=== PATIENT | female | born 1955 | race Caucasian/White ===

== ENCOUNTER 2021-01-29 02:50 | Inpatient (IN) | payer MEDICARE, BC ==
[2021-01-29] MEDS ORDERED: Naloxone 0.4 MG/ML SDV IVPUSH PRN (03:26)
[2021-01-29] MEDS ORDERED: HYDROmorphone/Normal Saline 15 MG/30 ML PCA IV PRN (03:26)
[2021-01-29] MEDS: Dextrose 5%-Lactated Ringers 1,000 ML IV SCH ×3 (03:57→16:04)
[2021-01-29] MEDS ORDERED: Nitroglycerin 0.4 MG Tab.SL SL PRN (07:01)
[2021-01-29] MEDS ORDERED: Meclizine 25 MG Tab PO PRN (07:01)
[2021-01-29] MEDS ORDERED: Albuterol 8 GM Inhaler INH PRN (07:01)
--- NOTE | 2021-01-29 07:47 | PCM.HP.2 ---
H&P History of Present Illness - General Date of Service: 01/29/21 Admit Problem/Dx: Admission Diagnosis/Problem Admission Diagnosis/Problem Small bowel obstruction Violette reports that she had a Gastric Bypass in [address] Benitez's first Gastric Bypass Surgery. She reports that her Consult Weight was 310 lbs and her lowest weight was 175 lbs. Maintained current weight for several years. Reports that last evening she developed severe mid abdominal pain that radiated to her left mid and upper abdomen associated with bloating and nausea. Diagnosed with a partial Small bowel obstruction in [place], [place] and was transferred to Emir Aragon MD Bariatric Surgeon. Violette had similar symptoms in September and her bowel obstruction responded by medical management. Abdomen Pain Score (Numeric/FACES): 0 - Related Data Allergies/Adverse Reactions: Allergies Allergy/AdvReac Type Severity Reaction Status Date / Time erythromycin base Allergy Nausea and Verified 01/29/21 03:22 Vomiting Home Medications: Home Meds Albuterol Sulfate [Proair Hfa] 1 - 2 puff PO Q4H PRN 01/29/21 [History] Betamethasone/Clotrimazole [Lotrisone] 15 gm TOP BID 01/29/21 [History] Cyanocobalamin (Vitamin B-12) [Vitamin B-12] 1,000 mcg PO DAILY 01/29/21 [History] Cyclobenzaprine [Flexeril] 10 mg PO BID 01/29/21 [History] Escitalopram [Lexapro] 10 mg PO DAILY 01/29/21 [History] Ferrous Sulfate 325 mg PO BID 01/29/21 [History] Gabapentin [Neurontin] 600 mg PO BEDTIME 01/29/21 [History] Hydrocodone/Acetaminophen [Hydrocodon-Acetaminophn 10-325] 1 tab PO Q4H PRN 01/29/21 [History] Meclizine [Antivert] 25 mg PO BID PRN 01/29/21 [History] Metoprolol Tartrate 12.5 mg PO BID 01/29/21 [History] Multivitamin 1 tab PO DAILY 01/29/21 [History] Nitroglycerin [Nitrostat] 0.4 mg SL ASDIRECTED PRN 01/29/21 [History] Pantoprazole [ProTONIX] 40 mg PO DAILY 01/29/21 [History] Sennosides/Docusate Sodium [Senna-Docusate Sodium Tablet] 2 tab PO BID PRN 01/29/21 [History] amLODIPine [Norvasc] 7.5 mg PO DAILY 01/29/21 [History] atorvaSTATin [Lipitor] 10 mg PO DAILY 01/29/21 [History] traZODone 1 tab PO BEDTIME 01/29/21 [History] Past Medical History HEENT History: Reports: Impaired Vision Cardiovascular History: Reports: Blood Clots/VTE/DVT, Heart Failure, Hypertension Other Cardiovascular History: Takotsubo Syndrome, NSTEMI, hypercholesteremia, Anemia Gastrointestinal History: Reports: Bowel Obstruction, GERD, Other (See Below) Other Gastrointestinal History: Chrohn disease Musculoskeletal History: Reports: Arthritis Other Musculoskeletal History: On a pain contract. Psychiatric History: Reports: Depression Endocrine/Metabolic History: Reports: Obesity/BMI 30+ Hematologic History: Reports: Anemia, B12 Deficiency - Infectious Disease History Infectious Disease History: Reports: VRE - Past Surgical History HEENT Surgical History: Reports: Tonsillectomy GI Surgical History: Reports: Appendectomy, Bariatric Procedure, Colonoscopy, Hernia, Abdominal Other GI Surgeries/Procedures: Abdominal adhesions, abdominal wall fluid collections, Female Surgical History: Reports: Hysterectomy Other Female Surgeries/Procedures: VRE in urine in 2007 Musculoskeletal Surgical History: Reports: Arthroscopic Knee, Arthroscopic Procedure, Hip Replacement, Knee Replacement Social & Family History - Family History Family Medical History: No Pertinent Family History - Tobacco Use Tobacco Use Status *Q: Current Every Day Tobacco User Years of Tobacco use: 50 Packs/Tins Daily: 0.5 Used Tobacco, but Quit: No - Caffeine Use Caffeine Use: Reports: Coffee, Soda - Recreational Drug Use Recreational Drug Use: No H&P Review of Systems - Review of Systems: Review Of Systems: See Below General: Reports: No Symptoms HEENT: Reports: No Symptoms Pulmonary: Reports: No Symptoms Cardiovascular: Reports: No Symptoms Gastrointestinal: Reports: Abdominal Pain, Decreased Appetite, Nausea Genitourinary: Reports: No Symptoms Musculoskeletal: Reports: No Symptoms Skin: Reports: No Symptoms Psychiatric: Reports: No Symptoms Neurological: Reports: No Symptoms Hematologic/Lymphatic: Reports: No Symptoms Immunologic: Reports: No Symptoms Exam - Exam Exam: See Below - Vital Signs Vital Signs: Last Vital Signs Temp 95.8 F L 01/29/21 07:22 Pulse 73 01/29/21 07:22 Resp 15 01/29/21 07:22 BP 124/75 01/29/21 07:22 Pulse Ox 95 01/29/21 07:22 Weight: 198 lb 10.184 oz - Exam Quality Assessment: DVT Prophylaxis General: Alert, Oriented, Mild Distress HEENT: PERRLA, Conjunctiva Clear Neck: Supple, Trachea Midline Lungs: Clear to Auscultation, Normal Respiratory Effort Cardiovascular: Regular Rate, Regular Rhythm GI/Abdominal Exam: Soft, No Distention, Other (minimal generalized tenderness) (Female) Exam: Deferred Extremities: Normal Inspection, Normal Range of Motion Skin: Warm, Dry, Intact Neurological: Cranial Nerves Intact, Reflexes Equal Bilateral Neuro Extensive - Mental Status: Alert, Oriented x3, Normal Mood/Affect, Memory Intact Neuro Extensive - Motor, Sensory, Reflexes: CN II-XII Intact Psychiatric: Alert, Normal Affect, Normal Mood - Patient Data Lab Results Last 24 hrs: Laboratory Results - last 24 hr 01/29/21 Range/Units 07:20 WBC 7.5 (4.5-11.0) K/uL RBC 4.43 (3.30-5.50) M/uL Hgb 12.6 (12.0-15.0) g/dL Hct 40.4 (36.0-48.0) % MCV 91 (80-98) fL MCH 28 (27-31) pg MCHC 31 L (32-36) % Plt Count 236 (150-400) K/uL Result Diagrams: 01/29/21 07:20 Sepsis Event Note - Evaluation Sepsis Screening Result: No Definite Risk - Focused Exam Vital Signs: Vital Signs Temp Pulse Resp BP Pulse Ox Pulse Ox 01/29/21 07:22 95.8 F L 73 15 124/75 95 01/29/21 03:26 91 L 01/29/21 03:21 96.9 F 84 18 107/60 91 L 91 L - Problem List (1) Partial small bowel obstruction SNOMED Code(s): 949267294 ICD Code: K56.600 - PARTIAL INTESTINAL OBSTRUCTION, UNSPECIFIED TO CAUSE Status: Acute Current Visit: Yes Problem List Initiated/Reviewed/Updated: Yes Orders Last 24hrs: Active Orders 24 hr Category Date Time Status Patient Status [ADT] Routine ADT 01/29/21 03:21 Active Communication Order [RC] STAT Care 01/29/21 03:26 Active Intake and Output [RC] PER UNIT ROUTINE Care 01/29/21 03:24 Active May Shower [RC] ASDIRECTED Care 01/29/21 06:59 Active Notify Provider [RC] PRN Care 01/29/21 03:26 Active Oxygen Therapy [RC] PRN Care 01/29/21 03:21 Active INSPECTOR DIALS Record [RC] PER UNIT ROUTINE Care 01/29/21 03:26 Active Pulse Oximetry [RC] CONTINUOUS Care 01/29/21 03:26 Active RT Aerosol Therapy [RC] ASDIRECTED Care 01/29/21 07:07 Active RT Post Treatment Assessment [RC] Click to Edit Care 01/29/21 07:07 Active Up ad Lory [RC] ASDIRECTED Care 01/29/21 03:21 Active Vital Signs [RC] Q4H Care 01/29/21 03:21 Active Clear Liquid Diet [DIET] Diet 01/29/21 Breakfast Active Abdomen 2V AP Flat Upright [CR] DAILY Exams 01/30/21 04:00 Ordered Abdomen 2V AP Flat Upright [CR] DAILY Exams 01/31/21 04:00 Ordered Abdomen 2V AP Flat Upright [CR] DAILY Exams 02/01/21 04:00 Ordered Abdomen 2V AP Flat Upright [CR] DAILY Exams 02/02/21 04:00 Ordered Abdomen 2V AP Flat Upright [CR] DAILY Exams 02/03/21 04:00 Ordered Abdomen 2V AP Flat Upright [CR] DAILY Exams 02/04/21 04:00 Ordered COMPREHENSIVE METABOLIC PN,CMP [CHEM] Routine Lab 01/29/21 07:20 Received COPPER, SERUM OR PLASMA Routine Lab 01/29/21 07:20 Received FERRITIN [CHEM] Routine Lab 01/29/21 07:20 Received FOLATE [FOLIC ACID] [CHEM] Routine Lab 01/29/21 07:20 Received MAGNESIUM [CHEM] Routine Lab 01/29/21 07:20 Received PHOSPHORUS [CHEM] Routine Lab 01/29/21 07:20 Received VITAMIN A, SERUM Routine Lab 01/29/21 07:20 Received VITAMIN B12 [CHEM] Routine Lab 01/29/21 07:20 Received VITAMIN D,25-HYDROXY [CHEM] Routine Lab 01/29/21 07:20 Received ZINC, PLASMA OR SERUM Routine Lab 01/29/21 07:20 Received Albuterol [Ventolin HFA] Med 01/29/21 07:01 Active 0 gm INH Q4H PRN Betamethasone/Clotrimazole [Lotrisone] Med 01/29/21 09:00 Active 0 gm TOP BID Cyanocobalamin (Vitamin B12) [Vitamin B12] Med 01/29/21 09:00 Active 1,000 mcg PO DAILY Cyclobenzaprine [Flexeril] Med 01/29/21 09:00 Active 10 mg PO BID Dextrose 5%-Lactated Ringers 1,000 ml Med 01/29/21 03:30 Active IV ASDIRECTED Docusate Sodium/Sennosides [Senna Plus] Med 01/29/21 09:00 Active 2 tab PO BID Escitalopram [Lexapro] Med 01/29/21 09:00 Active 10 mg PO DAILY Ferrous Sulfate Med 01/29/21 09:00 Active 325 mg PO BID Gabapentin [Neurontin] Med 01/29/21 21:00 Active 600 mg PO BEDTIME HYDROmorphone/Normal Saline [Dilaudid INSPECTOR DIALS 15 MG in NS Med 01/29/21 03:26 Active 30 ML] See Protocol IV ASDIRECTED PRN Meclizine [Antivert] Med 01/29/21 07:01 Active 25 mg PO BID PRN Metoprolol Tartrate [Lopressor] Med 01/29/21 09:00 Active 12.5 mg PO BID Multivitamins w-Iron/Ca/FA/Min [Thera M Plus] Med 01/29/21 09:00 Active 1 tab PO DAILY Naloxone [Narcan] Med 01/29/21 03:26 Active 0.4 mg IVPUSH Q2M PRN Nitroglycerin [Nitrostat] Med 01/29/21 07:01 Active 0.4 mg SL Q5M PRN Pantoprazole [ProTONIX] Med 01/29/21 07:30 Active 40 mg PO DAILY@0730 amLODIPine [Norvasc] Med 01/29/21 09:00 Active 7.5 mg PO DAILY atorvaSTATin [Lipitor] Med 01/29/21 09:00 Active 10 mg PO DAILY traZODone Med 01/29/21 21:00 Active 100 mg PO BEDTIME Medication Discontinuation Instructions [OM.PC] Stat Oth 01/29/21 03:26 Ordered SCD [Sequential Compression Device] [OM.PC] Routine Oth 01/29/21 03:27 Ordered Resuscitation Status Routine Resus Stat 01/29/21 03:21 Ordered Medication Orders Albuterol (Albuterol 8 Gm Inhaler) 0 gm INH Q4H PRN PRN Reason: Shortness of Breath Amlodipine Besylate (Amlodipine 5 Mg Tab) 7.5 mg PO DAILY [facility] Atorvastatin Calcium (Atorvastatin 10 Mg Tab) 10 mg PO DAILY [facility] Betamethasone/Clotrimazole (Betamethasone Dipropionate/Clotrimazole 0.05-1% Crm 15 Gm Tube) 0 gm TOP BID [facility] Cyanocobalamin (Cyanocobalamin (Vitamin B12) 1,000 Mcg Tab) 1,000 mcg PO DAILY [facility] Cyclobenzaprine HCl (Cyclobenzaprine 10 Mg Tab) 10 mg PO BID [facility] Escitalopram Oxalate (Escitalopram 10 Mg Tab) 10 mg PO DAILY [facility] Ferrous Sulfate (Ferrous Sulfate 325 Mg Tab) 325 mg PO BID [facility] Gabapentin (Gabapentin 300 Mg Cap) 600 mg PO BEDTIME [facility] Hydromorphone HCl (Hydromorphone/Normal Saline 15 Mg/30 Ml Battery Assembler) 0 mg IV ASDIRECTED PRN; Protocol PRN Reason: Pain Last Admin: 01/29/21 03:57 Dose: 15 mg Documented by: SHO Dextrose/Lactated Ringer's (Dextrose 5%-Lactated Ringers) 1,000 mls @ 150 mls/hr IV ASDIRECTED ROXANA Last Admin: 01/29/21 03:57 Dose: 150 mls/hr Documented by: SHO Meclizine HCl (Meclizine 25 Mg Tab) 25 mg PO BID PRN PRN Reason: Dizziness Metoprolol Tartrate (Metoprolol Tartrate 25 Mg Tab) 12.5 mg PO BID [facility] Multivitamins/Minerals (Multivitamins With Iron/Calcium/Folic Acid/Minerals Tab) 1 tab PO DAILY [facility] Naloxone HCl (Naloxone 0.4 Mg/Ml Sdv) 0.4 mg IVPUSH Q2M PRN PRN Reason: Respiratory Distress Nitroglycerin (Nitroglycerin 0.4 Mg Tab.Sl) 0.4 mg SL Q5M PRN PRN Reason: Chest Pain Pantoprazole Sodium (Pantoprazole 40 Mg Tab.Cr) 40 mg PO DAILY@0730 [facility] Senna/Docusate Sodium (Docusate Sodium/Sennosides 50-8.6 Mg Tab) 2 tab PO BID S [facility] Trazodone HCl (Trazodone 50 Mg Tab) 100 mg PO BEDTIME ROXANA Assessment: Partial Small Bowel Obstruction Plan: Clear liquid diet Abdominal Flat and Upright XRays daily for 6 days Check Bariatric Follow UP labs today Home medications were restarted. Follow Up prn or in AM Patient to be managed medically. Plan to be hospitalized 3 nights and 4 days. Heidi Mata
[2021-01-29] MEDS: Pantoprazole 40 MG Tab.CR PO SCH (08:25)
[2021-01-29] MEDS: Escitalopram 10 MG Tab PO SCH (08:26)
[2021-01-29] MEDS: Cyanocobalamin (Vitamin B12) 1,000 MCG Tab PO SCH (08:26)
[2021-01-29] MEDS: atorvaSTATin 10 MG Tab PO SCH (08:26)
[2021-01-29] MEDS: Cyclobenzaprine 10 MG Tab PO SCH ×2 (08:26→21:39)
[2021-01-29] MEDS: Metoprolol Tartrate 25 MG Tab PO SCH ×2 (08:26→21:31)
[2021-01-29] MEDS: Ferrous Sulfate 325 MG Tab PO SCH ×2 (08:26→21:32)
[2021-01-29] MEDS: Multivitamins with Iron/Calcium/Folic Acid/Minerals Tab PO SCH (08:26)
[2021-01-29] MEDS: amLODIPine 5 MG Tab PO SCH (08:27)
[2021-01-29] MEDS: Betamethasone Dipropionate/Clotrimazole 0.05-1% Crm 15 GM Tube TOP SCH ×2 (08:28→21:36)
[2021-01-29] MEDS ORDERED: Acetaminophen 325 MG Tab PO PRN (11:02)
[2021-01-29] MEDS ORDERED: Ketorolac 30 MG/ML SDV IM ONE (15:40)
[2021-01-29] MEDS: Acetaminophen/HYDROcodone 325-10 MG Tab PO PRN ×2 (15:55→21:32)
[2021-01-29] MEDS: Magnesium Sulfate/Water 2 GM in Premix Bag 1 BAG IV SCH (17:42)
[2021-01-29] MEDS ORDERED: Gabapentin 300 MG Cap PO SCH (21:00)
[2021-01-29] MEDS ORDERED: traZODone 50 MG Tab PO SCH (21:00)
[2021-01-30] MEDS: Magnesium Sulfate/Water 2 GM in Premix Bag 1 BAG IV SCH ×2 (00:11→05:52)
[2021-01-30] MEDS: Acetaminophen/HYDROcodone 325-10 MG Tab PO PRN ×2 (02:50→07:48)
[2021-01-30] MEDS: Pantoprazole 40 MG Tab.CR PO SCH (07:36)
[2021-01-30] MEDS: Betamethasone Dipropionate/Clotrimazole 0.05-1% Crm 15 GM Tube TOP SCH (08:41)
[2021-01-30] MEDS: amLODIPine 5 MG Tab PO SCH (08:44)
[2021-01-30] MEDS: Ferrous Sulfate 325 MG Tab PO SCH (08:45)
[2021-01-30] MEDS: Cyanocobalamin (Vitamin B12) 1,000 MCG Tab PO SCH (08:45)
[2021-01-30] MEDS: atorvaSTATin 10 MG Tab PO SCH (08:46)
[2021-01-30] MEDS: Metoprolol Tartrate 25 MG Tab PO SCH (08:46)
[2021-01-30] MEDS: Cyclobenzaprine 10 MG Tab PO SCH (08:47)
[2021-01-30] MEDS: Escitalopram 10 MG Tab PO SCH (08:47)
[2021-01-30] MEDS: Multivitamins with Iron/Calcium/Folic Acid/Minerals Tab PO SCH (08:48)
--- NOTE | 2021-01-30 11:05 | CR ---
Abdomen 2V AP Flat Upright CLINICAL HISTORY: Partial SBO FINDINGS: Small intestinal configuration is nonacute. There is gas and feces throughout the colon. There has been previous ventral hernia repair and gastric surgery IMPRESSION: Nonspecific intestinal gas pattern. Gas and feces throughout the colon.
--- NOTE | 2021-01-30 13:23 | DISCH ---
ADMISSION DIAGNOSES: Partial small bowel obstruction, Crohn disease, status post Martin-en-Y gastric bypass surgery, unspecified surgical malabsorption, B12 deficiency, vitamin D deficiency, depression, chronic pain on a pain contract, hypercholesterolemia, Takotsubo syndrome, history of blood clots, heart failure, hypertension. DISCHARGE DIAGNOSIS: Partial small bowel obstruction, resolved. HISTORY: Violette Damico is a pleasant 65-year-old female, who had a gastric bypass in [address] Benitez. It was her first gastric bypass surgery. She has been having episodes of partial small bowel obstructions that have resolved on their own, medically treated. She was transferred from [place] to [facility] on 01/29/2021 and her pain initially was . HOSPITAL COURSE: Violette was seen on 01/29/2021. She was receiving Dilaudid COLD WORKING INSPECTOR for her pain. Pain did resolve and she started passing flatus. She was on a clear liquid diet. She resumed all of her home medications and the COLD WORKING INSPECTOR was discontinued. IV fluids were given. She did have routine bariatric labs drawn and they are not all back yet. She had a bowel movement. Oral intake was good. Vital signs stable. Activity good. She was able to be discharged to home on 01/30/2021. 12 systems reviewed and all negative for any pertinent positives and negatives. OBJECTIVE: GENERAL: Violette Damico is a pleasant 65-year-old female. VITAL SIGNS: Height is 5 feet 4 inches, weight is 198 pounds. BMI is 34. TPR 96.5, 63, 16, blood pressure 185/76. HEENT: Negative. NECK: Supple. HEART: Regular rate and rhythm. LUNGS: Clear. ABDOMEN: Soft and nontender. EXTREMITIES: Without peripheral edema. DISPOSITION: Discharged to home. CONDITION: Stable and improving. FOLLOWUP: Appointment with Heidi Diana PA-C, on 02/13/2021 at 10 a.m. She is to resume all her home medications. DIET: Full liquid diet for 3 days, then GI, low-residue, low-fiber diet forever. ACTIVITY: As tolerated. Driving: May drive today. May shower. Notify provider if any increased pain, nausea, or vomiting. /[id number]
== END 2021-01-30 11:09 | disposition home or self-care (01) | DRG 389 ==
LOC: JP.ICU 02:50
PROVIDERS: ADMIT Surgery; ATTEND Surgery
DX: K56.600 Partial intestinal obstruction, unspecified as to cause (principal); K91.2 Postsurgical malabsorption, not elsewhere classified; K50.90 Crohn's disease, unspecified, without complications; I51.81 Takotsubo syndrome; E53.8 Deficiency of other specified B group vitamins; E55.9 Vitamin D deficiency, unspecified; F32.A Depression, unspecified; E78.00 Pure hypercholesterolemia, unspecified; I11.0 Hypertensive heart disease with heart failure; I50.9 Heart failure, unspecified; H54.7 Unspecified visual loss; F17.210 Nicotine dependence, cigarettes, uncomplicated; D64.9 Anemia, unspecified; K21.9 Gastro-esophageal reflux disease without esophagitis; E66.9 Obesity, unspecified; Z96.649 Presence of unspecified artificial hip joint; Z96.659 Presence of unspecified artificial knee joint; Z98.84 Bariatric surgery status; Z88.1 Allergy status to other antibiotic agents; Z79.899 Other long term (current) drug therapy; Z86.718 Personal history of other venous thrombosis and embolism; Z79.01 Long term (current) use of anticoagulants; I25.2 Old myocardial infarction; Z90.49 Acquired absence of other specified parts of digestive tract; Z68.34 Body mass index [BMI] 34.0-34.9, adult
CPT/HCPCS: 36415; 74019; 74019-26; 80053; 82306; 82525; 82607; 82728; 82746; 83735; 84100; 84590; 84630; 85027; A9270-GY; J1170; J1885; J3475; J7121